=== PATIENT | female | born 1945 | race Caucasian/White ===

== ENCOUNTER 2018-03-01 10:22 | Outpatient (CLI) | payer BC, SELFPAY ==
[2018-03-01 10:52] LABS: Abs Immature Grans 0.03 k/cumm (0.0-0.09); Absolute Basophil Count 0.03 k/cumm (0.0-0.2); Absolute Eosinophil Count 0.25 k/cumm (0.0-0.7); Absolute Lymphocyte Count 2.31 k/cumm (1.2-3.4); Absolute Monocyte Count 0.67 k/cumm (0.11-0.7); Absolute Neutrophil Count 4.43 k/cumm (1.2-6.7); Basophils % 0.4; Eosinophils % 3.2; HCT 39.6 % (36.0-46.0); HGB 13.1 g/dL (12.0-15.5); Immature Grans % 0.4; Lymphocytes % 29.9; Mean Corp. HGB Concentration 33.1 g/dL (32.0-36.0); Mean Corpuscular Hemoglobin 31.6 pg (27.0-33.0); Mean Corpuscular Volume 95.7 fL (80-95); Mean Platelet Volume 10.2 fL (8.0-11.0); Monocytes % 8.7; Neutrophils % 57.4; Platelet Count 278 x1000/uL (130-400); RBC 4.14 m/cumm (4.00-5.20); RBC Distribution Width 13.3 % (11.7-14.6); White Blood Cell Count 7.72 k/cumm (4.4-10.8)
[2018-03-01 13:07] LABS: ALT 29 U/L (12-78); AST 21 U/L (15-37); Albumin 3.4 g/dL (3.4-5.0); Alkaline Phosphatase 82 U/L (46-116); Anion Gap 8.3 mmol/L (3-11); BUN 17 mg/dL (7-18); Bilirubin, Total 0.2 mg/dL (0.2-1.0); CO2 30.7 mmol/L (21.0-32.0); CREATININE 1.11 mg/dL (0.55-1.02); Chloride 103 mmol/L (98-107); Estimated GFR 48.46 (mL/min/1.73m2); Glucose 97 mg/dL (70-100); LDH 148 U/L (81-234); Potassium 3.9 mmol/L (3.5-5.1); Sodium 142 mmol/L (136-145); Total Protein 7.8 g/dL (6.4-8.2)
== END 2018-03-01 10:42 ==
PROVIDERS: PCP Family Medicine; Visit Provider Internal Medicine Hematology & Oncology
DX: C82.90 Follicular lymphoma, unspecified, unspecified site (principal)
CPT/HCPCS: 36415; 80053; 83615; 85025

== ENCOUNTER 2018-10-28 09:38 | Outpatient (CLI) | payer BC, SELFPAY ==
[2018-10-28 10:44] LABS: Hemoglobin A1C 5.6 % (4.5-6.2)
[2018-10-28 10:49] LABS: Calculated LDL 173; Cholesterol 251 mg/dL (50-200); HDL Cholesterol 52 mg/dL (40-60); Triglyceride 130 mg/dL (30-150)
== END 2018-10-28 09:58 ==
PROVIDERS: PCP Family Medicine; Visit Provider Family Medicine
DX: R73.01 Impaired fasting glucose (principal); E78.5 Hyperlipidemia, unspecified
CPT/HCPCS: 36415; 80061; 83721; 83036

== ENCOUNTER 2019-03-07 09:27 | Outpatient (CLI) | payer BC, SELFPAY ==
[2019-03-07 10:14] LABS: Abs Immature Grans 0.03 k/cumm (0.0-0.09); Absolute Basophil Count 0.02 k/cumm (0.0-0.2); Absolute Eosinophil Count 0.39 k/cumm (0.0-0.7); Absolute Lymphocyte Count 2.06 k/cumm (1.2-3.4); Absolute Neutrophil Count 3.11 k/cumm (1.2-6.7); Basophils % 0.3; Eosinophils % 6.5; HCT 38.1 % (36.0-46.0); HGB 12.5 g/dL (12.0-15.5); Immature Grans % 0.5; Lymphocytes % 34.3; Mean Corp. HGB Concentration 32.8 g/dL (32.0-36.0); Mean Corpuscular Hemoglobin 32.4 pg (27.0-33.0); Mean Corpuscular Volume 98.7 fL (80-95); Monocytes % 6.7; Neutrophils % 51.7; Platelet Count 316 x1000/uL (130-400); RBC 3.86 m/cumm (4.00-5.20); White Blood Cell Count 6.01 k/cumm (4.4-10.8)
[2019-03-07 10:28] LABS: ALT 19 U/L (14-59); AST 14 U/L (15-37); Albumin 3.4 g/dL (3.4-5.0); Alkaline Phosphatase 69 U/L (46-116); Anion Gap 7.3 mmol/L (3-11); BUN 13 mg/dL (7-18); Bilirubin, Total 0.2 mg/dL (0.2-1.0); CO2 28.7 mmol/L (21.0-32.0); CREATININE 0.83 mg/dL (0.55-1.02); Calcium 9.2 mg/dL (8.5-10.1); Chloride 105 mmol/L (98-107); Glucose 95 mg/dL (70-100); LDH 128 U/L (81-234); Potassium 4.8 mmol/L (3.5-5.1); Sodium 141 mmol/L (136-145); Total Protein 7.5 g/dL (6.4-8.2)
== END 2019-03-07 09:47 ==
PROVIDERS: PCP Family Medicine; Visit Provider Internal Medicine Hematology & Oncology
DX: C85.80 Other specified types of non-Hodgkin lymphoma, unspecified site (principal)
CPT/HCPCS: 36415; 80053; 83615; 85025

== ENCOUNTER 2020-09-14 17:51 | Outpatient (REF) | payer BC, SELFPAY ==
[2020-09-14 15:37] LABS: HCT 42.6 % (36.0-46.0); HGB 13.8 g/dL (11.2-15.7); MCH 31.4 pg (27.0-33.0); MCHC 32.4 % (32.0-36.0); MPV 9.2 fL (8.0-11.0); Platelet Count 309 10^3/uL (130-400); RBC 4.39 10^6/uL (3.93-5.22); RDW 12.9 % (11.7-14.6); WBC 5.66 10^3/uL (4.4-10.8)
[2020-09-14 16:02] LABS: Glucose 109 mg/dL (74-106)
[2020-09-14 16:25] LABS: Hemoglobin A1C 5.6 % (<5.7)
== END 2020-09-14 17:52 | disposition home or self-care (01) ==
LOC: NCHCN 17:51
PROVIDERS: PCP Family Medicine; Visit Provider Family Medicine
DX: Z85.72 Personal history of non-Hodgkin lymphomas (principal); R73.03 Prediabetes
CPT/HCPCS: 82947; 85027; 83036

== ENCOUNTER 2021-02-26 07:10 | Emergency (ER) | payer BC, SELFPAY ==
[2021-02-26 07:16] VITALS: BP 172/87; PULSE 105; TEMP 36.1; O2SAT 98
--- NOTE | 2021-02-26 07:45 | DI.RAD_ITS ---
Exam(s) XR WRIST LT COMPLETE EXAM: XR WRIST LT COMPLETE CLINICAL HISTORY: hit L wrist on door, r/o fracture. TECHNIQUE: 2D digital imaging was performed of the left wrist. Three images were obtained. PA, obl ique and lateral views were obtained. COMPARISON: No exams were available for comparison FINDINGS: BONES: No acute fracture is present. No bony destructive lesion is seen. JOINTS: The carpal bones are normally aligned. Degenerative changes are seen at the 1st CMC joint. SOFT TISSUE: Normal. IMPRESSION: No acute fracture or dislocation. DATA REPOSITORY: RADIATION DOSE DELIVERED:
--- NOTE | 2021-02-26 08:21 | ED.GENADUL_ITS ---
Discharge Plan Disposition Patient Disposition: HOME Condition: Stable Discharge Details Clinical Impression: Acute pain of left wrist Primary Care Provider: Radha Clark ED Provider: Shameka Dorantes Home Meds and New Rx's Prescriptions: No Action epinephrine [EpiPen 2-Chris] 0.3 MG/0.3 ML auto-injector 0.3 mg IM PRN PRN (Reason: Anaphylaxis) RF: 0 Discharge Instructions Instructions: Arthralgia (ED) Additional Instructions: The x-rays show no evidence for any acute broken bones, you do have small amount of arthritis and degenerative changes. Rest, Ice, Compression, elevation. Ice wrist or 10 to 15 minutes on and off for the next couple of days. Please take Tylenol with food every 4-6 hours as needed for pain and swelling. You may also take Benadryl 1 tablet at home to help with a possible histamine reaction from the bug bite. Use splint as needed for comfort. Return for any worsening redness, worsening swelling over the next 2 to 3 days or any fever or concerns. Follow up with primary care provider in 3-5 days. Return to ED sooner if any worsening or concerns. Increase oral fluids. Referrals: Radha Clark MD [Primary Care Provider] - Medical Decision Making 75 year old female presents with left wrist pain after hitting wrist on door on Thursday. She also reports being bit by unknown insect on Thursday which caused some swelling. Denies fever, chills, or any other associated symptoms. On initial exam patient is A&O x 3, some mild dorsal ecchymosis, and erythema to palmar aspect of wrist. Distal CMS intact. XR ordered, Tylenol and ice pack. Patient declined Tylenol and ice pack at this time. XR WRIST LT COMPLETE EXAM: XR WRIST LT COMPLETE CLINICAL HISTORY: hit L wrist on door, r/o fracture. TECHNIQUE: 2D digital imaging was performed of the left wrist. Three images were obtained. PA, oblique and lateral views were obtained. COMPARISON: No exams were available for comparison FINDINGS: BONES: No acute fracture is present. No bony destructive lesion is seen. JOINTS: The carpal bones are normally aligned. Degenerative changes are seen at the 1st CMC joint. SOFT TISSUE: Normal. IMPRESSION: No acute fracture or dislocation. Patient declined wrist splint. Instructed to ice elevate take Tylenol and Benadryl as needed. Discussed return instructions and follow-up with PCP. HPI General Mode of arrival: ambulatory . Date/Time Provider Initiated Documentation: 02/26/21 07:51 . Limitations to Documentation: no limitations . Information obtained by: patient and RN notes reviewed . HPI Narrative: 75 year old female presents with left wrist pain after hitting wrist on door on Thursday. She also reports being bit by unknown insect on Thursday which caused some swelling. Denies fever, chills, or any other associated symptoms. On initial exam patient is A&O x 3, some mild dorsal ecchymosis, and erythema to palmar aspect of wrist. Distal CMS intact. Related Data Home Medications Medication Instructions Recorded Confirmed epinephrine [EpiPen 2-Chris] 0.3 mg IM PRN PRN 11/25/16 02/26/21 Allergies Allergy/AdvReac Type Severity Reaction Status Date / Time tree nut Allergy Severe anaphylaxis Unverified 02/26/21 07:21 broccoli Allergy Unknown Unverified 02/26/21 07:21 bannans Allergy Severe anaphylaxis Uncoded 02/26/21 07:21 carrots Allergy Mild rash/itch Uncoded 02/26/21 07:21 General Stated Complaint: Orthopedic DIMA: 4 Review of Systems All systems reviewed & are unremarkable except as noted in HPI and below Musculoskeletal Musculoskeletal: Reports arthralgias (Left wrist) and Reports joint swelling [facility] Medical History Acoustic neuroma Colon polyp GERD (gastroesophageal reflux disease) Non Hodgkin's lymphoma Obesity Osteoarthritis Surgical History bone marrow transplant Colonoscopy - MAC EGD - MAC Tonsillectomy Social History Smoking/Tobacco Use Status: Former Tobacco Use Smoking risk assessment performed?: Yes Alcohol Intake: current Alcohol Intake frequency: a few times a month Drug use: Never Substance use type: does not use Do you feel safe at home: Yes Do you feel safe in your relationship?: Yes Exam Extrem Left upper extremity: normal capillary refill, wrist Details: tenderness, swelling and ecchymosis (Mild erythema to the volar aspect of the left wrist) wrist volar Details: single; no deformity and hand (Contusion noted to the dorsum of left hand mild swelling throughout hand) Details: abrasion; no cyanosis and no edema Course Vital Signs Vital signs: Vital Signs Temperature 36.1 C L 02/26/21 07:16 Pulse 105 H 02/26/21 07:16 Blood Pressure 172/87 H 02/26/21 07:16 Pulse Oximetry 98 02/26/21 07:16 Temperature 36.1 C L 02/26/21 07:16 Temperature Source Temporal Artery Scan 02/26/21 07:16 Pulse 105 H 02/26/21 07:16 Respiratory Effort Non-Labored 02/26/21 07:22 Blood Pressure 172/87 H 02/26/21 07:16 Blood Pressure Position Sitting 02/26/21 07:16 Pulse Oximetry 98 02/26/21 07:16 Oxygen Delivery Method Room Air 02/26/21 07:16 Oxygen Flow Rate 0 02/26/21 07:16
== END 2021-02-26 10:00 | disposition home or self-care (01) ==
PROVIDERS: Emergency Provider Registered Nurse Emergency; PCP Family Medicine
DX: M25.532 Pain in left wrist (principal); W22.8XXA Striking against or struck by other objects, initial encounter; S60.862A Insect bite (nonvenomous) of left wrist, initial encounter; W57.XXXA Bitten or stung by nonvenomous insect and other nonvenomous arthropods, initial encounter
CPT/HCPCS: 99283; 73110

== ENCOUNTER 2021-05-28 01:04 | Outpatient (CLI) | payer BC, SELFPAY ==
--- NOTE | 2021-05-28 | DI.US_ITS ---
APPROVED REPORT EXAM: Comprehensive 2D, Doppler, and color-flow Echocardiogram Patient Location: Out-Patient Bead Supervisor: Jagruti Marquis RDCS (AE) Indications: Dyspnea on exertion Other Information Study Quality: Fair. Technically limited study due to body habitus. Conclusion Normal left ventricular wall thickness and chamber size. Estimated ejection fraction is 55 to 60%. Wall motion is normal The right ventricle is not well visualized Both atria are normal in size The aortic valve is trileaflet and sclerotic with mild regurgitation. There is no aortic stenosis Moderate mitral annular calcification. Mild mitral regurgitation Normal tricuspid valve with trace to mild regurgitation. Estimated right ventricular systolic pressu re is 36 mmHg Dilated ascending aorta measuring 3.76 cm Wall motion Left Ventricle The left ventricle is normal size. The left ventricular systolic function is normal. The left ventric ular ejection fraction is within the normal range. There is normal left ventricular wall thickness. T here is normal LV segmental wall motion. There is no ventricular septal defect visualized. LVEF is 58 %. Right Ventricle Right ventricle is not well visualized. Right ventricular systolic function could not be assessed. Th e RVSP is 36.3mmHg. Atria The left atrium size is normal. The right atrium size is normal. The interatrial septum is intact wit h no evidence for an atrial septal defect. Aortic Valve The Aortic valve is sclerotic. Aortic valve is trileaflet. There is no aortic valvular stenosis. Mild aortic regurgitation. Mitral Valve Moderate mitral annular calcification. No evidence of mitral valve stenosis. Mild mitral regurgitatio n. Tricuspid Valve The tricuspid valve is normal in structure. There is no tricuspid valve stenosis. Trace to mild tricu spid regurgitation. Pulmonic Valve Pulmonic valve is not well visualized. There is no pulmonic valvular stenosis. There is no pulmonic v alvular regurgitation. Great Vessels The aortic root is normal in size. The ascending aorta is mildly dilated. IVC is normal in size and c ollapses >50% with inspiration. Pericardium There is no pericardial effusion. 2D Dimensions IVSD d PLAX 1.04 cm F: 0.6-1.0 LV Vol A2C d MOD 88.7 mL LVPW d PLAX 1.02 cm F: 0.6 - 1.0 LV Vol A4C d MOD 117.8 mL LVID d PLAX 4.34 cm F: 3.8 - 5.2 LV EF A4C MOD 58.6 % LVDs 3.00 cm F: 2.2 - 3.5 LV EF A2C MOD 58.0 % Ao Root d 2.87 cm F: 2.7 - 3.3 LV EF Biplane MOD 57.3 % Ao Asc Diam d 3.76 cm F: 2.3 - 3.1 SV 58.81 mL LV EF Teichholz 58.3 % SV Index 30.54 mL/m2 LVEF (Mcgee's) 57.26 % F: 54 - 74 LV Volume 78.02 mL F: 46 - 106 LV Volume Index 40.63 mL/m2 F: 29 - 61 LV Vol Biplane MOD 102.7 mL FS 30.55 % M-Mode TAPSE 1.80 cm (M/F) >1.7 LV Diastology MV E' medial 0.068 (>0.07 m/s) E/A Ratio 0.6 LV E/e MED 11.10 (<14) MV E Vmax 0.76 (0.4-1.3 m/s) MV E' lateral 0.066 (>0.1 m/s) MV A Vmax 1.25 (0.4-1.3 m/s) LV E/e LAT 11.55 (<14) MV E/A Ratio 0.61 MV E/E' medial 11.14 MV E/E' lateral 11.56 Aortic Valve LVOT Area 3.15 cm2 AoV Area Vmax 2.10 cm2 LVOT Vmax 0.82 m/s AoV Area/ BSA (Vmax) 1.09 cm2/m2 LVOT Mean Shamir. 0.60 m/s DIANA Mean Shamir. 1.97 cm2 LVOT Peak Grad 2.7 mmHg DIANA Mean Shamir. Index 1.02 cm2/m2 LVOT Mean Grad 1.5 mmHg AR DT 1965 msec LVOT VTI 0.166 m AR PHT 570 msec LVOT Diam s 2.00 cm AoV Vmax 1.23 m/s Velocity Ratio 0.66 AoV Mean Shamir. 0.96 m/s AoV Peak Grad 6.1 mmHg LVOT SV 52.35 mL AoV Mean Grad 4.0 mmHg AoV VTI 0.277 m AoV Area VTI 1.89 cm2 AoV Area/ BSA (VTI) 0.98 cm/m2 Mitral Valve MV DT 279 (160-240 msec) MV PHT 81 msec MV Area PHT 2.71 cm2 MV VTI 0.307 m MV Area VTI 1.71 (4.0-6.0 cm2) Pulmonary Valve PV Vmax 0.75 (0.5-1.5 m/s) RVOT Peak Gr. 0.98 mmHg PV Peak Grad 2.2 mmHg RVOT Mean Gr. 0.60 mmHg PV Mean Grad 1.5 mmHg RVOT VTI 0.095 m PV VTI 0.160 m RVOT Vmax 0.50 m/s Tricuspid Valve TR Peak Grad 33.2 mmHg TR Vmax 2.88 m/s RA Pressure 3.00 mmHg RVSP (TR) 36.3 mmHg
== END 2021-05-28 01:24 ==
PROVIDERS: PCP Family Medicine; Visit Provider Family Medicine
DX: R06.09 Other forms of dyspnea (principal); R93.9 Diagnostic imaging inconclusive due to excess body fat of patient; I08.3 Combined rheumatic disorders of mitral, aortic and tricuspid valves
CPT/HCPCS: 93306

== ENCOUNTER 2022-08-11 14:54 | Outpatient (REF) | payer BC, SELFPAY ==
[2022-08-11 15:21] LABS: HCT 42.4 % (36.0-46.0); HGB 14.2 g/dL (11.2-15.7); MCH 31.4 pg (27.0-33.0); MCHC 33.5 % (32.0-36.0); MCV 94 fL (80-95); MPV 9.5 fL (8.0-11.0); Platelet Count 293 10^3/uL (130-400); RBC 4.52 10^6/uL (3.93-5.22); RDW 12.9 % (11.7-14.6); RDW-SD 44.3 fL; WBC 6.16 10^3/uL (4.4-10.8)
[2022-08-11 15:50] LABS: ALT 37 U/L (14-59); AST 30 U/L (15-37); Albumin 3.8 g/dL (3.4-5.0); Alkaline Phosphatase 84 U/L (46-116); Anion Gap 9.5 mmol/L (3-11); BUN 13 mg/dL (7-18); Bilirubin, Total 0.4 mg/dL (0.2-1.0); CO2 28.5 mmol/L (21.0-32.0); CREATININE 0.9 mg/dL (0.55-1.02); Calcium 9.4 mg/dL (8.5-10.1); Chloride 101 mmol/L (98-107); Estimated GFR 66.26 (mL/min/1.73m2); Glucose 102 mg/dL (74-106); LDH 172 U/L (81-234); NT-proBNP 254 pg/mL (<300); Potassium 4.2 mmol/L (3.5-5.1); Sodium 139 mmol/L (136-145); TSH (W/Ref FT4) 2.12 uIU/mL (0.36-3.74)
[2022-08-12 16:08] LABS: Beta-2-Microglobulin 2.34 mcg/mL
== END 2022-08-11 14:55 | disposition home or self-care (01) ==
LOC: NCHCN 14:54
PROVIDERS: PCP Family Medicine; Visit Provider Family Medicine
DX: R06.09 Other forms of dyspnea (principal); Z85.79 Personal history of other malignant neoplasms of lymphoid, hematopoietic and related tissues
CPT/HCPCS: 80053; 85027; 82232; 83615; 83880; 84443

== ENCOUNTER 2022-08-21 00:23 | Outpatient (CLI) | payer BC, SELFPAY ==
--- NOTE | 2022-08-21 08:45 | DI.NM_ITS ---
APPROVED REPORT Exam: Exercise Treadmill Patient Location: Out-Patient Room/Bed: Stress Nurse: Ary Colmenares RN Ordering Provider:SIM MALDONADO, Contact Number: [phone] BMI: 35.77 Baseline Rhythm: Sinus Rhythm Indications: JAMESON, HTN, HLD Medical History Medical History: Palpitations, light headedeness, fall risk, JAMESON, GERD, HTN, HLD, obesity, PTSD Cardiac Medications: None Allergies: Bananas, almonds Cardiac Risk Factors: Family history, HTN, HLD, former smoker, obesity Previous Cardiac Procedures: None Pretest Chest Pain Characteristics: None Exercise History: Sedentary Physical Disabilities: Neck, Back, Legs Lung Sounds: Clear to auscultation Heart Sounds: Regular Stress Test Details Nuclear Acquisition: Rest Tc-99m/Stress Tc-99m 1 day Rest Isotope: Tc-99m Sestamibi. Dose: 10.0 Date: 08/21/2022 Injection Time: 0840 Stress Isotope: Tc-99m Sestamibi. Dose: 32.8 Date: 08/21/2022 Injection Time: 1010 HR Resting HR Supine: 85 bpm Max Heart Rate (APMHR): 144.071643 bpm Resting HR Standin bpm Target HR (85% APMHR): 122.800062 bpm Max HR Achieved: 150 bpm % of APMHR: 104.17 Recovery HR: 112 bpm HR response to stress: Accelerated HR response to stress BP Resting BP Supine: 154/80 mmHg Resting BP Standin/72 mmHg Max BP: 230/108 mmHg Recovery BP: 154/96 mmHg BP response to stress: Abnormal hypertensive response to stress. ECG Resting ECG: Sinus Rhythm Ectopy: None Stress ECG: Sinus Tachycardia ST Change: No significant ST segment changes noted Arrhythmia: PVC's Recovery ECG: Sinus Rhythm Recovery ST Change: No significant ST segment changes noted Recovery Arrhythmia: PVC's Clinical Reason for Termination: Target HR Achieved, Dyspnea, Fatigue Stress Symptoms: Dyspnea, Leg Fatigue, General Fatigue Exercise duration: 2 min58 sec Highest Stage Reached: Stage 1: 1.7 mph at 10% grade. Exercise capacity: 4.64 METs Angina Score: None Lamas Treadmill Score: 1.7 Rate Pressure Product: 10633 Stress ECG Conclusion 1. The resting electrocardiogram showed poor R wave progression and an intraventricular conduction de lay 2. Patient exercised on the Edgar protocol completed a workload of 4.64 METS 3. Hypertensive blood pressure response to exercise. Accelerated heart rate response to exercise. T he patient achieved greater than 100% of predicted heart rate for age 4. The electrocardiographic portion of the test was negative for myocardial ischemia 5. See MPI report Lamas Treadmill Score is 1.7 which is Moderate risk. Stress Test Summary STAGE Time (mins) Speed (mph) Grade (%) HR BP SpO2 SYMPTOMS METS Supine 85 154/80 96 Standing 92 142/72 98 1 3 1.7 10 146 84 Mod dyspnea, leg pain 4.5 1 min recovery 141 220/90 94 Mod-severe dyspnea, persisitent cough 3 min recovery 110 230/108 94 Mod-severe dyspnea, persistent cough 6 min recovery 115 169/106 97 Dyspnea improving, persistent cough 9 min recovery 119 154/96 97 Dyspnea resolved, cough improving Patient noted to have persisitent cough at end of test. States cough often occurs at home. Able to sp eak in clear sentences and cough improving when patient left for imaging, dyspnea and leg pain also r esolved. MPI Conclusion Myocardial perfusion is normal. There is no ischemia or evidence of prior infarction EF 55%, normal wall motion Radiologist Interpretation Radiologist agrees with Parts Room Clerk's Interpretation. Radiologist Interpretation by: Kelsie Hahn MD Interpretation Date/Time: 08/21/2022 16:22:13
== END 2022-08-21 00:43 ==
LOC: DI 00:23
PROVIDERS: PCP Family Medicine; Visit Provider Family Medicine
DX: R06.09 Other forms of dyspnea (principal); I10 Essential (primary) hypertension
CPT/HCPCS: 78452; 93017

== ENCOUNTER 2022-08-25 01:02 | Outpatient (CLI) | payer BC, SELFPAY ==
--- NOTE | 2022-08-25 | DI.MAMMO_ITS ---
Exam(s) MAMMO SCREENING EXAM: MAMMO SCREENING CLINICAL HISTORY: SCREENING FOR BREAST CANCER Z12.39. TECHNIQUE: Bilateral full field digital CC and MLO mammographic images were obtained with 3D tomosyn thesis and utilizing computer aided detection (CAD). COMPARISON: None available FINDINGS: There are multiple benign-appearing secretory-type calcifications noted throughout both breasts. The re are no malignant-appearing microcalcification groups in either breast. No nodules in the right breast. In the anterior aspect of the left breast on the CC view there is small asymmetric density noted in t he lateral retroareolar region measuring 8 by 3 mm located 2 cm in from the nipple. Best seen on the CC view. Further imaging recommended. There is no significant architectural distortion nor skin thickening-retraction. IMPRESSION: No radiographic evidence of malignancy in the right breast. Left breast asymmetric density-possible nodule anteriorly. Spot compression view and left breast ult rasound recommended. BI-RADS Category 0 - Assessment Incomplete: Need additional imaging evaluation Breast Density - Category B - Scattered areas of fibroglandular density Breast density Category C or D implies that the patient has dense breast tissue. Dense breast tissue can make it harder to find cancer on a mammogram. Dense breast tissue is also associated with an incr eased risk of breast cancer. This information about the result of the mammogram report was provided to the patient to raise their awareness. Use this report when you speak with the patient about their risks for breast cancer, which includes their family history. At that time, you may recommend additional screening tests (Ultrasoun d or MRI) as these tests may add significant information. A negative radiographic report should not delay biopsy if a dominant or clinically suspicious mass is present. Up to ten percent of cancers are not identified on mammography. A negative report may reinforce clinical impression. Adenosis and dense breasts may obscure an underlying neoplasm. False positive reports average 6 to 10%. Patient will receive a letter notifying them of these results.
--- NOTE | 2022-08-25 | DI.RAD_ITS ---
Exam(s) XR CHEST 2V PA LATERAL EXAM: XR CHEST 2V PA LATERAL CLINICAL HISTORY: JAMESON R06.09. TECHNIQUE: 2D digital imaging was performed. COMPARISON: CR CHEST 2 VIEWS PA,LAT from 09/27/2013 FINDINGS: 2 views: Heart size is normal. The mediastinum is not widened. Scarring in left lung base again noted. No infiltrates nor pleural effusions. No pulmonary edema. IMPRESSION: No acute pulmonary findings. DATA REPOSITORY: RADIATION DOSE DELIVERED:
== END 2022-08-25 01:22 ==
LOC: DI 01:02
PROVIDERS: PCP Family Medicine; Visit Provider Family Medicine
DX: Z12.31 Encounter for screening mammogram for malignant neoplasm of breast (principal)
CPT/HCPCS: 77063; 77067; 71046

== ENCOUNTER 2022-09-01 01:02 | Outpatient (CLI) | payer BC, SELFPAY ==
--- NOTE | 2022-09-01 | DI.MAMMO_ITS ---
Exam(s) MG MAMMO SCREEN CALL BACK UNI US BREAST LT LIMITED EXAM: MG MAMMO SCREEN CALL BACK UNI and U/S breast LT limited CLINICAL HISTORY: ASYMMETRIC DENSITY LEFT BREAST-POSSIBLE NODULE R92.8 ABNL MAMMO. TECHNIQUE: Craniocaudal and mediolateral oblique Full Field Digital Mammography views of the left br east with Computer Aided Diagnosis followed by Tomosynthesis and left breast ultrasound. COMPARISON: Comparison is made with prior examinations. FINDINGS: Mammography/Tomosynthesis: Masses/Architectural Distortion: There of concern is less prominent on the additional views. No robert d mass persists. There are no areas of architectural distortion. Microcalcifictions: No suspicious pleomorphic-type are seen. Benign type calcifications are again see n scattered in the throughout the breast. Skin Thickening/Nipple Retraction: None. Limited left breast US: Echotexture: Normal appearance of the glandular tissue. Shadowing: No suspicious foci. Cyst: None. Solid lesions: None seen. Ductal dilation: None. IMPRESSION: 1. No evidence of malignancy is noted. 2. Unless there is more urgent need, follow-up screening mammography is recommended, as per [place] [employer] guidelines. 3. The findings were discussed with the patient on the date of the examination. BI-RADS Category 2 - Benign Findings Breast Density - Category B - Scattered areas of fibroglandular density Breast density Category C or D implies that the patient has dense breast tissue. Dense breast tissue can make it harder to find cancer on a mammogram. Dense breast tissue is also associated with an incr eased risk of breast cancer. This information about the result of the mammogram report was provided to the patient to raise their awareness. Use this report when you speak with the patient about their risks for breast cancer, which includes their family history. At that time, you may recommend additional screening tests (Ultrasoun d or MRI) as these tests may add significant information. A negative radiographic report should not delay biopsy if a dominant or clinically suspicious mass is present. Up to ten percent of cancers are not identified on mammography. A negative report may reinforce clinical impression. Adenosis and dense breasts may obscure an underlying neoplasm. False positive reports average 6 to 10%. Patient will receive a letter notifying them of these results.
== END 2022-09-01 01:22 ==
LOC: DI 01:02
PROVIDERS: PCP Family Medicine; Visit Provider Family Medicine
DX: R92.8 Other abnormal and inconclusive findings on diagnostic imaging of breast (principal)
CPT/HCPCS: 76642; 77063; 77067

== ENCOUNTER 2022-09-23 01:26 | Outpatient (CLI) | payer BC, SELFPAY ==
--- NOTE | 2022-09-23 | DI.MRI_ITS ---
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 TECHNIQUE: Multiplanar multisequence MRI of the brain and internal auditory canals was performed. CONTRAST MATERIAL: IV Contrast: Contrast was not administered on this examination. COMPARISON: MR MRI IAC W/WO CONTRAST from 09/18/2010 MR MRI - BRAIN W/WO CONTRAST from 10/04/2013 FINDINGS: The examination is limited due to patient motion artifact. VENTRICLES AND EXTRA AXIAL SPACES: Normal in size and morphology for the patient's age. HEMORRHAGE: None. CEREBRAL PARENCHYMA: There is a small round focus of restricted diffusion in the right frontal lobe. This may represent a subacute infarct. There are multiple areas of hyperintense signal seen in the white matter on the FLAIR and T2 weighted images most consistent with small vessel ischemic disease. MIDLINE SHIFT: None. BRAINSTEM/CEREBELLUM: Normal. CALVARIUM: Normal. VISUALIZED PARANASAL SINUSES/MASTOIDS: Clear. [place]: Normal flow void. PITUITARY GLAND: Unremarkable. IAC/CP ANGLE: The 4.9 mm nodular area in the lateral aspect of the right internal auditory canal appe ars unchanged. Contrast was not administered on this examination. This is best appreciated on the t hin slice T1 weighted axial images through the IAC's. No discrete mass is seen in the left internal auditory canal. The cerebellar pontine angles are unremarkable. No enhancing lesions are seen. Visua lized portion of the facial nerves appear within normal limits. OTHER FINDINGS: None. IMPRESSION: 1. Stable 4.9 mm nodule in the lateral aspect of the right internal auditory canal. Again this may r epresent a lesion such as a acoustic neuroma. 2. No lesion is seen in the left internal auditory canal. 3. Age-related cerebral atrophy and small vessel ischemic disease. 4. Small focus of restricted diffusion in the right frontal lobe which may represent a subacute infar ct. Unexpected findings DATA REPOSITORY:
== END 2022-09-23 01:46 ==
PROVIDERS: PCP Family Medicine; Visit Provider Family Medicine
DX: H93.01 Transient ischemic deafness (principal); D33.3 Benign neoplasm of cranial nerves
CPT/HCPCS: 70551

== ENCOUNTER 2022-09-30 08:32 | Outpatient (CLI) | payer BC, SELFPAY | END 2022-09-30 08:33 | disposition home or self-care (01) | LOC: CARDOPNVT 08:32 | PROVIDERS: PCP Family Medicine; Visit Provider Family Medicine | DX: R27.0 Ataxia, unspecified (principal) | CPT/HCPCS: 93270 ==

== ENCOUNTER 2022-10-01 02:46 | Outpatient (CLI) | payer BC, SELFPAY ==
--- NOTE | 2022-10-01 14:30 | DI.MRI_ITS ---
Exam(s) MR ANGIO BRAIN WO EXAM: MR ANGIO BRAIN WO CLINICAL HISTORY: ATAXIA, R27.0, HX OF STROKE, Z86.79 TECHNIQUE: Performed on 1.5 jhonny unit [id number] sequence. Unable to use head coil due to ovidio re kyphosis. COMPARISON: Prior MR brain FINDINGS: ANTERIOR CIRCULATION: Both internal carotid arteries are skull base and cavernous sinuses. Supraclin oid aspects are patent. A1 segments are patent. Anterior cerebral arteries are. There is no eviden ce of aneurysm at the level of the anterior communicating artery. Middle cerebral arteries are patent no intraluminal filling defects no critical stenosis evident. POSTERIOR CIRCULATION: At the skull base the basilar artery is formed by both vertebral arteries, wit h the left being dominant. The basilar artery ascends with normal luminal diameter. Distally it giv es off patent superior cerebellar arteries and above this level terminates as patent bilateral immigration paral[place] ior cerebral arteries. There is no evidence of aneurysm at the tip of the basilar artery nor elsewhe re in the [id number]. IMPRESSION: 1. Patent intracranial arteries. 2. No aneurysms evident. DATA REPOSITORY:
--- NOTE | 2022-10-01 14:45 | DI.MRI_ITS ---
Exam(s) MR ANGIO NECK WO CLINICAL HISTORY: ATAXIA, R27.0, HX OF STROKE, Z86.79. TECHNIQUE: Performed on 1.5 jhonny unit with [id number] sequence CONTRAST MATERIAL: None COMPARISON: None. FINDINGS: Less than optimal study due to amount kyphosis here. Anterior circulation: The common carotid arteries ascend with normal luminal diameters. There is plaque at the level the c arotid bifurcations and proximal ICAs bilaterally. Difficult to determine the amount of stenosis her e due to the amount of artifact. Estimated approximately 50 percent bilaterally the proximal ICAs. Above this level the internal carotid arteries are patent in the upper neck skull base. Posterior circulation: Vertebral arteries are patent in the foramen transverse area, left being domin ant. Both vertebral arteries contribute to the formation of basilar artery at the skull base. No ob vious vertebral artery dissection or thrombosis. IMPRESSION: Limited study due to motion. There appears to be stenosis at the carotid bulbs and proximal internal carotid arteries bilaterally, estimated approximately 50 percent. Posterior circulation is patent i n the neck. DATA REPOSITORY:
== END 2022-10-01 03:06 ==
LOC: DI 02:46
PROVIDERS: PCP Family Medicine; Visit Provider Family Medicine
DX: I65.23 Occlusion and stenosis of bilateral carotid arteries (principal); R27.0 Ataxia, unspecified; Z86.79 Personal history of other diseases of the circulatory system
CPT/HCPCS: 70544; 70547

== ENCOUNTER 2022-11-03 09:02 | Outpatient (CLI) | payer BC, SELFPAY ==
--- NOTE | 2022-11-03 09:06 | W.CARDEVENT ---
Date of service: 11/03/22 Time of Service: 09:06 Cardiac Event Recorder Referring Provider:: Radha Clark Indications:: Ataxia Cardiac Event Note: This is a 30-day cardiac event monitor Rhythm throughout was sinus with an average heart rate of 85. There was no bradycardia. Maximum heart rate was 108 There was one 9 beat run which appeared to be SVT with aberrancy, not ventricular tachycardia. This was asymptomatic. There were rare ventricular ectopic beats There was no atrial fibrillation, no high-grade AV block, no pauses greater than 3 seconds
== END 2022-11-03 09:03 | disposition home or self-care (01) ==
LOC: CARDOPNVT 09:02
PROVIDERS: PCP Family Medicine; Visit Provider Internal Medicine Cardiovascular Disease
DX: R27.0 Ataxia, unspecified (principal); I47.1 Supraventricular tachycardia

== ENCOUNTER 2022-12-19 09:32 | Outpatient (REF) | payer BC, SELFPAY ==
[2022-12-19 16:06] LABS: Hemoglobin A1C 5.8 % (<5.7)
[2022-12-19 16:24] LABS: Calculated LDL 181 mg/dL (<100); Cholesterol 256 mg/dL (<200); HDL Cholesterol 52 mg/dL (40-60); Triglyceride 117 mg/dL (<150)
== END 2022-12-19 09:33 | disposition home or self-care (01) ==
LOC: NCHCN 09:32
PROVIDERS: PCP Family Medicine; Visit Provider Family Medicine
DX: I10 Essential (primary) hypertension (principal); R73.03 Prediabetes; E78.5 Hyperlipidemia, unspecified; Z86.73 Personal history of transient ischemic attack (TIA), and cerebral infarction without residual deficits
CPT/HCPCS: 80061; 83036

== ENCOUNTER → 2023-01-22 01:43 | Outpatient (CLI) | payer BC, SELFPAY ==
--- NOTE | 2023-01-22 07:30 | DI.US_ITS ---
APPROVED REPORT EXAM: Comprehensive 2D, Doppler, and color-flow Echocardiogram Patient Location: Out-Patient Rail Car Loader: Jagruti Marquis RDCS (AE) Indications: Ataxia, H/O stroke Other Information Study Quality: Adequate Conclusion Normal left ventricular wall thickness and chamber size. Ejection fraction is 52%. There are no seg mental wall motion abnormalities Normal right ventricular size and systolic function Both atria are normal in size The aortic valve is sclerotic and trileaflet with mild regurgitation There is mitral annular calcification and moderate mitral regurgitation Normal tricuspid valve with mild regurgitation. Estimated right ventricular systolic pressure is 41 mmHg Mildly dilated ascending aorta 3.67 cm Wall motion Left Ventricle The left ventricle is normal size. The overall left ventricular systolic function appears low normal . There is normal left ventricular wall thickness. There is normal LV segmental wall motion. There i s no ventricular septal defect visualized. LVEF is 52%. Right Ventricle The right ventricle is normal size. The right ventricular systolic function is normal. Atria The left atrium size is normal. The right atrium size is normal. The interatrial septum is intact wit h no evidence for an atrial septal defect. Aortic Valve The Aortic valve is sclerotic. Aortic valve is trileaflet. There is no aortic valvular stenosis. Mo derate aortic regurgitation. Mitral Valve There is mild to moderate mitral annular calcification. No evidence of mitral valve stenosis. Moderat e mitral regurgitation. Tricuspid Valve The tricuspid valve is normal in structure. There is no tricuspid valve stenosis. Mild tricuspid regu rgitation. The RVSP is 41.1 mmHg. Pulmonic Valve The pulmonary valve is normal in structure. There is no pulmonic valvular stenosis. Trace pulmonic re gurgitation. Great Vessels The aortic root is normal in size. The ascending aorta is mildly dilated. Aortic arch is not well vis ualized. IVC is normal in size and collapses >50% with inspiration. Pericardium There is no pericardial effusion. 2D Dimensions IVSD d PLAX 0.91 cm F: 0.6-1.0 Ao Root d 2.98 cm F: 2.7 - 3.3 LVPW d PLAX 0.93 cm F: 0.6 - 1.0 Ao Asc Diam d 3.67 cm F: 2.3 - 3.1 LVID d PLAX 5.15 cm F: 3.8 - 5.2 LVDs 3.76 cm F: 2.2 - 3.5 LV EF Teichholz 52.3 % FS 27.01 % LV EDV (Teich) 126.8 mL LV ESV (Teich) 60.5 mL M-Mode TAPSE 1.60 cm (M/F) >1.7 Auto EF LV EDV A4C 138.9 mL LV EDV A2C 146.9 mL LV EDV BP LV ESV A4C 65.5 mL LV ESV A2C 70.2 mL LV ESV BP LVEF(%) A4C 52.8 % LVEF(%) A2C 52.2 % LVEF(%) BP LV SV A4C 73.4 ml LV SV A2C 76.7 ml LV SV BP LV CO A4C 6.0 L/min LV CO A2C 6.1 L/min LV CO BP HR A4C 81.27 BPM HR A2C 79.47 BPM LV EDV Index (BP) LA Volume LA Length A4C 4.0 cm LA Length A2C 5.5 cm LA Area A4C s 15.91 cm2 LA Area A2C s 15.83 cm2 LA Vol A4C A-L 54.24 mL LA Vol A2C A-L 38.56 mL LA Vol Biplane A-L 54.0 mL LA Vol/BSA A4C A-L LA Vol/BSA A2C A-L LA Vol/BSA BP A-L 28.9 mL/m2 LA Vol A4C MOD 50.7 mL LA Vol A2C MOD 35.5 mL LA Vol BP MOD 49.5 mL RA Volume RA Area A4C 7.8 cm2 RA ESV A4C (A-L) 13.8mL RA Vol/BSA A4C A-L RA Length A4C 3.8 cm RA ESV A4C (MOD) 13.8mL LV Diastology MV E' medial 0.055 (>0.07 m/s) MV E Vmax 1.03 (0.4-1.3 m/s) MV E/E' MED 18.62 (<14) MV A Vmax 1.35 (0.4-1.3 m/s) MV E' lateral 0.077 (>0.1 m/s) E/A Ratio 0.8 MV E/E' LAT 13.42 (<14) MV E' Average 0.066 m/s MV E/E'(average) 15.59 Aortic Valve AoV Vmax 1.61 m/s LVOT Vmax 0.88 m/s AoV Peak Grad 42.1 mmHg LVOT Peak Grad 3.1 mmHg AoV Area (Vmax) 1.75 cm2 LVOT VTI 0.198 m AoV VTI 0.365 m LVOT Mean Grad 2.0 mmHg AoV Mean Shamir. 1.11 m/s LVOT SV 63.31 mL AoV Mean Grad 5.7 mmHg LVOT Diam s 2.00 cm AoV Area (VTI) 1.74 cm2 AV Regurg Peak Gr. 73.65 mmHg Velocity Ratio 0.55 AR Decel [place] 2.4m/sec2 AR DT 1766 msec AR PHT 512 msec AR Vmax 4.29 m/s Mitral Valve MV Vmax TIPS 1.40 m/s MV Mean Grad 3.4 (<2mmHg) MV VTI 0.353 m Pulmonary Valve PV Vmax 0.93 (0.5-1.5 m/s) RVOT Vmax 0.55 m/s PV Peak Grad 3.5 mmHg RVOT Peak Gr. 1.2 mmHg PV Mean Shamir 0.61 m/s RVOT VTI 0.122 m PV Mean Grad 1.7 mmHg RVOT Mean Gr. 0.7 mmHg Tricuspid Valve RA Pressure 3.00 mmHg TR Vmax 3.09 m/s TV S' 0.11 m/s TR Peak Grad 38.1 mmHg RVSP (TR) 41.1 mmHg
== END ==
PROVIDERS: PCP Family Medicine; Visit Provider Family Medicine
DX: R27.0 Ataxia, unspecified (principal); Z82.3 Family history of stroke
CPT/HCPCS: 93306

== ENCOUNTER 2023-08-10 15:19 | Outpatient (CLI) | payer BC, SELFPAY ==
[2023-08-10 14:25] LABS: Abs Immature Grans 0.02 10^3/uL (0.0-0.06); Absolute Basophil Count 0.04 10^3/uL (0.0-0.2); Absolute Eosinophil Count 0.25 10^3/uL (0.0-0.7); Absolute Lymphocyte Count 2.94 10^3/uL (1.2-3.4); Absolute Monocyte Count 0.42 10^3/uL (0.1-0.8); Absolute Neutrophil Count 3.11 10^3/uL (1.2-6.7); Basophils % 0.6; Eosinophils % 3.7; HCT 40.7 % (36.0-46.0); Immature Grans % 0.3; Lymphocytes % 43.4; MCH 30.6 pg (27.0-33.0); MCHC 31.9 % (32.0-36.0); MCV 96 fL (80-95); Monocytes % 6.2; Neutrophils % 45.8; Platelet Count 268 10^3/uL (130-400); RBC 4.25 10^6/uL (3.93-5.22); RDW 13.9 % (11.7-14.6); RDW-SD 48.7 fL; WBC 6.78 10^3/uL (4.4-10.8)
[2023-08-10 15:15] LABS: ALT 16 U/L (14-59); AST 18 U/L (15-37); Albumin 3.6 g/dL (3.4-5.0); Alkaline Phosphatase 89 U/L (46-116); BUN 14 mg/dL (7-18); Bilirubin, Total 0.5 mg/dL (0.2-1.0); CREATININE 0.8 mg/dL (0.55-1.02); Calcium 9.6 mg/dL (8.5-10.1); Chloride 105 mmol/L (98-107); Estimated GFR 75.84 (mL/min/1.73m2); Ferritin 306 ng/mL (8-252); Glucose 85 mg/dL (74-106); Potassium 3.6 mmol/L (3.5-5.1); Sodium 138 mmol/L (136-145); Total Protein 8.5 g/dL (6.4-8.2)
== END 2023-08-10 15:20 | disposition home or self-care (01) ==
LOC: LBO 15:19
PROVIDERS: PCP Family Medicine; Visit Provider Surgery
DX: R00.2 Palpitations (principal); Z12.11 Encounter for screening for malignant neoplasm of colon; Z86.010 Personal history of colon polyps; E78.5 Hyperlipidemia, unspecified; I10 Essential (primary) hypertension
CPT/HCPCS: 36415; 80053; 82728; 85025

== ENCOUNTER 2023-08-13 16:45 | Outpatient (REF) | payer BC, SELFPAY ==
[2023-08-17 20:35] LABS: Calprotectin <50.0 mcg/g
== END 2023-08-13 16:46 | disposition home or self-care (01) ==
LOC: LBN 16:45
PROVIDERS: PCP Family Medicine; Visit Provider Surgery
DX: R19.7 Diarrhea, unspecified (principal); R15.2 Fecal urgency; I10 Essential (primary) hypertension; R06.09 Other forms of dyspnea; E78.5 Hyperlipidemia, unspecified
CPT/HCPCS: 83630; 83993

== ENCOUNTER → 2023-10-01 04:25 | Outpatient (CLI) | payer BC, SELFPAY ==
--- NOTE | 2023-10-01 | DI.DEXA_ITS ---
Exam(s) XR DEXA BONE DENSITY W/WO ZACH EXAM: XR DEXA BONE DENSITY W/WO ZACH CLINICAL HISTORY: N95.1 Menopausal and female climacteric states TECHNIQUE: [employer] C densitometer analysis of left hip, lumbar spine and left forearm. Lat eral survey image of the thoracic and lumbar spine. COMPARISON: DX DEXA BONE DENSITY WITH ZACH from 09/01/2017 FINDINGS: Lateral view of the thoracic and lumbar spine shows no evidence of compression fractures. Bone mineral density measurements of the lumbar spine correspond to a total T-score of 0.3, in the n ormal range. This is not significantly changed from 2018. Bone mineral density measurements of the left hip correspond to a total T-score of -0.8. The femora l neck T-score is -0.9, in the normal range. This represents a 5.8 percent decrease when compared w ith 2018. Theleft forearm bone mineral density measurements correspond to a T-score of the distal 3rd of -1.5. This represents a 4.2 percent decrease compared with 2018.. IMPRESSION: Normal bone mineral density of the lumbar spine and hip. Osteopenia of the forearm.
--- NOTE | 2023-10-01 | DI.MAMMO_ITS ---
Exam(s) MG MAMMO SCREENING 60 MIN DUR EXAM: MG MAMMO SCREENING 60 MIN DUR CLINICAL HISTORY: Z12.39 Screening. TECHNIQUE: Bilateral full field digital CC and MLO mammographic images were obtained with 3D tomosyn thesis and utilizing computer aided detection (CAD). COMPARISON: Prior mammograms were reviewed. FINDINGS: There has been no significant change in the appearance and distribution of the fibroglandular tissue. Extensive secretory-type benign calcifications are again noted throughout both breasts. There are no new spiculated masses nor new malignant appearing microcalcification groups. There is no significant architectural distortion nor skin thickening-retraction. IMPRESSION: Stable benign findings. No radiographic evidence of malignancy. BI-RADS Category 2 - Benign Findings Breast Density - Category B - Scattered areas of fibroglandular density Breast density Category C or D implies that the patient has dense breast tissue. Dense breast tissue can make it harder to find cancer on a mammogram. Dense breast tissue is also associated with an incr eased risk of breast cancer. This information about the result of the mammogram report was provided to the patient to raise their awareness. Use this report when you speak with the patient about their risks for breast cancer, which includes their family history. At that time, you may recommend additional screening tests (Ultrasoun d or MRI) as these tests may add significant information. A negative radiographic report should not delay biopsy if a dominant or clinically suspicious mass is present. Up to ten percent of cancers are not identified on mammography. A negative report may reinforce clinical impression. Adenosis and dense breasts may obscure an underlying neoplasm. False positive reports average 6 to 10%. Patient will receive a letter notifying them of these results.
--- NOTE | 2023-10-01 | DI.MRI_ITS ---
Exam(s) MR CERVICAL SPINE WO EXAM: MR CERVICAL SPINE WO CLINICAL HISTORY: R27.0 Ataxia, unspecified TECHNIQUE: Multiplanar multisequence MRI of the cervical spine was performed without intravenous con trast. COMPARISON: MR MRI - BRAIN W/WO CONTRAST from 10/04/2013 FINDINGS: CERVICOMEDULLARY JUNCTION: Intact with no evidence of cerebellar tonsillar ectopia. No obvious abnor mality of the odontoid process. No evidence of Chiari 1 malformation. CERVICAL SPINAL CORD: There is no abnormal signal in the cervical spinal cord and no evidence of foca l cord atrophy nor focal cord swelling. OSSEOUS:There are no cervical fractures evident. No significant osseous lesions in the cervical vert ebrae. There is straightening and slight reversal of the normal curvature of the cervical spine whic h has its epicenter at C5-6 level. INDIVIDUAL LEVELS: C2-3: No evidence of disc herniation or central canal stenosis. There is significant bilateral facet arthropathy. There is moderate bilateral foraminal stenosis at this level C3-4: There is an element of partial osseous fusion anteriorly and posteriorly at this level. There is no evidence of disc herniation. No central canal stenosis. Facet joints on the right side appear fused and partially fused on the left side. There is mild-moderate bilateral foraminal stenosis. C4-5: There also appears to be fusion both anteriorly and posteriorly at this level with rudimentary disc space. No disc herniation or central canal stenosis. Facet joints are fused bilaterally at thi s level.No obvious foraminal stenosis on either side at this level. C5-6: This level exhibits chronic disc space narrowing and there is relatively symmetrical posterior annular bulging which effaces the thecal sac and contacts the anterior aspect of the cervical spinal cord at this level. There is no prominent disc herniation. Central canal dimensions are within norm al limits, measuring 1 cm. The relative flexion at this level because of the multiple 2 segments abo ve this level cause the effacement of the anterior thecal sac. Nevertheless, there is no prominent c entral spinal canal stenosis at this level. There is mild-moderate degenerative change in the left f acet joints and mild degenerative change in the right facet joints at this level. There is moderate foraminal stenosis on the left side. Minimal if any significant foraminal stenosis on the right side . C6-7: This level exhibits moderate disc height loss. There is mild annular bulging with effacement o f the thecal sac but central canal dimensions are within normal limits measuring 1 cm AP. There is n o effacement nor abnormal signal within the cervical spinal cord at this level. Facet joints at this level appear unremarkable. There is no obvious foraminal stenosis on either side at this level. C7-T1: No disc herniation nor central canal stenosis. No facet arthropathy.No foraminal stenosis. IMPRESSION: 1. 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 This results in reversal of the normal curvature at C5-6 level and effacement of the anterior thecal sac at C5-6 level but no prominent disc herniation. 2. Individual level findings as discussed above. 3. There is no dominant disc herniation nor prominent central canal stenosis nor prominent foraminal stenosis. DATA REPOSITORY:
== END ==
PROVIDERS: PCP Family Medicine; Visit Provider Family Medicine
DX: Z12.31 Encounter for screening mammogram for malignant neoplasm of breast (principal); Z13.820 Encounter for screening for osteoporosis; N95.1 Menopausal and female climacteric states; M81.0 Age-related osteoporosis without current pathological fracture; M50.120 Mid-cervical disc disorder, unspecified level
CPT/HCPCS: 77063; 77067; 77080; 72141

== ENCOUNTER 2024-07-29 22:52 | Outpatient (REF) | payer BC, SELFPAY ==
[2024-08-01 12:32] LABS: Measles IgG Antibody Positive (See Note)
[2024-08-01 12:37] LABS: Rubella IgG Ab (UVM) Positive (See Note)
== END 2024-07-29 22:53 | disposition home or self-care (01) ==
LOC: LBN 22:52
PROVIDERS: PCP Family Medicine; Visit Provider Physician Assistant Medical
DX: Z11.59 Encounter for screening for other viral diseases (principal)
CPT/HCPCS: 86762; 86765

== ENCOUNTER 2025-04-03 09:45 | Outpatient (REF) | payer BC, SELFPAY ==
[2025-04-03 16:39] LABS: Vitamin B12 241 pg/mL (211-911)
[2025-04-03 17:08] LABS: Anion Gap 10.2 mmol/L (3-11); BUN 12 mg/dL (9-23); CO2 27.8 mmol/L (20.0-31.0); Calcium 9.1 mg/dL (8.3-10.6); Chloride 105 mmol/L (98-107); Glucose 74 mg/dL (74-106); Potassium 4.3 mmol/L (3.5-5.1); Sodium 143 mmol/L (136-145)
[2025-04-03 17:29] LABS: Hemoglobin A1C 5.7 % (<5.7)
== END 2025-04-03 09:46 | disposition home or self-care (01) ==
LOC: NCHCN 09:45
PROVIDERS: PCP Family Medicine; Visit Provider Family Medicine
DX: R73.03 Prediabetes (principal); I10 Essential (primary) hypertension; R26.0 Ataxic gait
CPT/HCPCS: 80048; 82607; 83036

== ENCOUNTER 2025-04-10 12:09 | Outpatient (REF) | payer BC, MEDICARE, SELFPAY ==
[2025-04-10 19:36] LABS: Microalb ug/mg Crea 7.1 ug/mg Cr
== END 2025-04-10 12:10 | disposition home or self-care (01) ==
LOC: NCHCN 12:09
PROVIDERS: PCP Family Medicine; Visit Provider Family Medicine
DX: I10 Essential (primary) hypertension (principal)
CPT/HCPCS: 82043; 82570

== ENCOUNTER → 2025-04-28 00:16 | Outpatient (CLI) | payer BC, MEDICARE, SELFPAY ==
--- NOTE | 2025-04-28 18:20 | DI.MAMMO_ITS ---
Exam(s) MAMMO SCREENING EXAM: MAMMO SCREENING CLINICAL HISTORY: SCREENING, Z12.31 TECHNIQUE: Bilateral full field digital CC and MLO mammographic images were obtained with 3D tomosynthesis and utilizing computer aided detection (CAD). COMPARISON: Comparison is made with prior examinations. FINDINGS: Masses/Architectural Distortion: No suspicious masses or areas of architectural distortion are present. Microcalcifications: No suspicious pleomorphic-type are seen. There are stable benign type calcifications seen throughout both breasts. Skin Thickening/Nipple Retraction: None. IMPRESSION: 1. No significant interval change with no specific features of malignancy noted. 2. Unless there is more urgent need, screening mammography is recommended, as per [employer] [employer] guidelines. BI-RADS Category 2 - Benign Findings Breast Density - Category B - There are scattered areas of fibroglandular density. Breast density Category C or D implies that the patient has dense breast tissue. Dense breast tissue can make it harder to find cancer on a mammogram. Dense breast tissue is also associated with an increased risk of breast cancer. This information about the result of the mammogram report was provided to the patient to raise their awareness. Use this report when you speak with the patient about their risks for breast cancer, which includes their family history. At that time, you may recommend additional screening tests (Ultrasound or MRI) as these tests may add significant information. A negative radiographic report should not delay biopsy if a dominant or clinically suspicious mass is present. Up to ten percent of cancers are not identified on mammography. A negative report may reinforce clinical impression. Adenosis and dense breasts may obscure an underlying neoplasm. False positive reports average 6 to 10%. Patient will receive a letter notifying them of these results.
== END ==
LOC: DI 00:16
PROVIDERS: PCP Family Medicine; Visit Provider Family Medicine
DX: Z12.31 Encounter for screening mammogram for malignant neoplasm of breast (principal)
CPT/HCPCS: 77063; 77067